=== PATIENT | female | born 1975 | race Caucasian/White ===

== ENCOUNTER → 2018-11-28 14:18 | Outpatient (CLI) | payer BC, SELFPAY ==
[2018-11-27 11:25] VITALS: BMI 23.8
== END ==
PROVIDERS: Referring Provider Physician Assistant; Visit Provider Physician Assistant
DX: J02.9 Acute pharyngitis, unspecified (principal)
CPT/HCPCS: 87081

== ENCOUNTER 2021-02-14 13:54 | Outpatient (RCR) | payer BC, SELFPAY ==
[2018-11-30 11:54] VITALS: BMI 23.8
[2021-02-14] MEDS: COVID-19 VACC, MRNA(PFIZER)/PF 30 MCG/0.3 ML SYRINGE IM (16:12)
[2021-03-07] MEDS: COVID-19 VACC, MRNA(PFIZER)/PF 30 MCG/0.3 ML SYRINGE IM (16:14)
== END 2021-02-14 23:59 ==
LOC: IMMUN 13:54
PROVIDERS: PCP Family Medicine; Visit Provider Family Medicine
DX: Z23 Encounter for immunization (principal)
CPT/HCPCS: 0001A; 0002A; 91300

== ENCOUNTER 2022-04-13 17:30 | Outpatient (RCR) | payer BC, SELFPAY ==
--- NOTE | 2022-03-10 11:18 | HP.OTEVAL_ITS ---
Patient's Visit Information ART GABRIEL is a 47 year old F, referred to Occupational Therapy by LAVONNE MARTIN, with a diagnosis of B hand pain, hand muscle weakness, wrist weakness. Date of Evaluation: 03/10/22 Occupational Therapist: Ellen Vela, YOVANIR/L - Subjective Pt. 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 Pt. has c/o pain neck pain and has been doing massage for 2 years. She gets headaches from neck pain and gets a massage monthly that focuses on her neck and shoulders. She reported purchasing a new mattress (medium firm) & pillow (medium firm) a month ago, and does not feel so uncomfortable when she gets up like she used to with the old mattress. Pt. reporting her hands have been like this for a long time and she has checked with the DrDerrick and it is not arthritis. Crissy Rivera/YOVANI performed this eval under the direct supervision of TATIANA Diehl/Stevan - ADLs Fasteners: Buttons Eating: Cut food Comments: mascara, brushes Kitchen: Chop with knife, Open jars, Lift gallon of milk Comments: raking sticks causes throbbing pain Miscellaneous: Write, Sew Comments: Pt. resides in a ranch style home, laundry in basement. Daughter lives at home and pt. not . She is R hand dominant. Pt. reported that putting her mascara on can be difficult and that she has been using compensatory tech. - Pain Right Hand 1 Pain Intensity Range: 7 Neck 1 Pain Intensity Range: 7 - Objective Pt. attempted to write out her address, pt. was only able to get house number and start of street name with thin/standard pen, greater success and no pain just discomfort w/ a larger/wide pen. She did like using the the wider pen, but was still unable to write the entire address. - ROM Shoulder: B WFL Elbow: B WFL Wrist: B WFL MP: B WFL PIP: B WFL DIP: B WFL ROM Comments: All AROM WFL. Wrist flexion more painful. - Strength Shoulder: L 17.9, R 15.3 Elbow: L 12.2 R 8 Principal Consulting Engineer: L 45# R 30# Lateral Pinch: L 12#, R 11# Tripod Pinch: L 11#, R 8# Tip-to-Tip Pinch: L 5#, R 5# Strength Comments: R UB strength is less than her LUE. She is R hand dominant. Used micro FET for shoulder and elbow strength. Pt. attempted to cloth inspector pen and write out address, she was able to get her house number and start her street name before stopping because of increased pain. - Edema Other: no swelling or edema noted - Sensation Thumb: L 2.83 R 2.83 Index: L 2.83 R 3.22 Middle: L 2.83 R 3.22 Ring: L 2.83 R 3.22 Little: L 2.83 R 3.22 Stereognosis: Normal - Right, Normal - Left Kinesthesia: Normal - Right, Normal - Left Proprioception: Normal - Right, Normal - Left Sensation Comments: Used [place] monofilament assessment, pt. within normal limits. Per nerve conduction study impression results: mildly abnormal study, evidence of of chronic, inactive bilateral C8/T1 radiculopathies with no evidence of active ongoing denervation. - Transfers Transfers: Pt. independent with functional mobility. - Quick DASH-Disab of Arm,Shoulder& Hand Quick DASH Score: 45.0000 - Goals Goal:: Pt. to improve R UB strength by 10# in elbow (from 8 to 18) and hand cloth inspector (30# to 40#) for IADL tasks with home mgt by dc. Pt. to increase tripod pinch (from 8# to 10#) for grooming tasks by dc. Goal:: Pt. will report a decrease in R hand pain of <7/10 during handwriting/typing tasks by using compensatory and adaptive tech to write whole address by dc. Goal:: Pt. will report having setup an ergonomic work station at home for correct body positioning with typing within 3 weeks. - Rehabilitation General Assessment: Pt. has been referred for bilateral hand weakness, hand muscle weakness, and wrist weakness. Pt. has hand pain and weakness that is hindering her from her normal ADL, IADL, and work performance. She would benefit from skilled OT services 1-2 times a week for 6 weeks to decrease pain and sensitivity and increase strength. Rehabilitation Potential: Good - Anticipated Interventions A/AAROM/PROM, Strengthening, Joint Protection/Energy Conservation, Ergonomic Education, Fine Motor Coord/Lance, Home Program, Other Other Interventions: Pt. was provided with ergonomic seating position for work station at home. Also educated pt. on correct positioning and adaptive materials to use for correct body positioning. Pt. verbalized understanding. - Visit Plan Frequency: 2x /Week Duration: 6 Weeks General Plan: Erika pain scale. Ergonomics. proper body positioning. stretching/exercises. education TEXT: Thank you for the opportunity to evaluate your patient. For Medicare and Medicare HMO plans, please review the plan of care and approve it. It will need to be FAXED BACK to us at [phone] for Medicare purposes. Please let me know if there are questions or concerns regarding this plan of care. Physician Signature:____ Date:
--- NOTE | 2022-09-01 13:38 | HP.OT.NRP ---
ART GABRIEL was seen in my office for initial evaluation on 03/10/22. The following Plan of Care was established for this patient: Initial Frequency: 2x /Week Initial Duration: 6 Weeks Plan: cont with OT POC Anticipated Interventions: A/AAROM/PROM, Strengthening, Joint Protection/Energy Conservation, Ergonomic Education, Fine Motor Coord/Lance, Home Program, Other Other Interventions: Pt. was provided with ergonomic seating position for work station at home. Also educated pt. on correct positioning and adaptive materials to use for correct body positioning. Pt. verbalized understanding. This patient was last seen in our office 04/13/22. Pertinent comments regarding their Occupational therapy will appear below: pt was seen for 7 visits. pt has not scheduled further apts and is d/c at this time due to time lapse in services. At this point I will be discontinuing this patient from occupational therapy. I would be happy to see this patient again in the future if found appropriate by the physician. Thank you! Paola Ramírez, OTR/L, CHT
== END 2022-04-13 19:00 | disposition home or self-care (01) ==
LOC: OT 17:30
PROVIDERS: PCP Family Medicine
DX: M79.641 Pain in right hand (principal); M79.642 Pain in left hand; M62.81 Muscle weakness (generalized); R29.898 Other symptoms and signs involving the musculoskeletal system
CPT/HCPCS: 97110; 97165; 97530

== ENCOUNTER → 2024-08-22 | Outpatient (CLI) | payer OTHER, SELFPAY ==
[2024-08-24 20:08] LABS: QNTFERON TB Mitogen Value > 10.00 IU/mL (.); QNTFERON TB Nil Value 0 IU/mL (.); QNTFERON TB1+ Ag Value 0 IU/mL (.); QNTFERON TB2+ Ag Value 0 IU/mL (.); QNTIFERON TB Positive Criteria Negative (Negative)
== END | disposition home or self-care (01) ==
LOC: MTLAB 16:10
PROVIDERS: PCP Family Medicine; Referring Provider Physician Assistant; Visit Provider Physician Assistant
DX: L40.0 Psoriasis vulgaris (principal); M25.50 Pain in unspecified joint
CPT/HCPCS: 36415; 86480